=== PATIENT | male | born 1955 | race Caucasian/White ===

== ENCOUNTER 2019-03-28 00:26 | Inpatient (IN) | payer OTHER ==
[2019-03-28 01:00] LABS: Basophils % (A) 1 %; Eosinophils # (A) 0.1 k/uL (0-0.7); Eosinophils % (A) 2 %; HCT 27.4 % (39.0-53.0); Lymphocytes # (A) 0.9 k/uL (1.0-4.8); Lymphocytes % (A) 24 %; MCH 36.3 pg (25.0-35.0); MCHC 36.6 g/dL (31.0-37.0); MCV 99.2 fL (80.0-100.0); Mean Platelet Volume 7.1; Monocytes # (A) 0.3 k/uL (0-1.0); Monocytes % (A) 7 %; Neutrophils # (A) 2.6 k/uL (1.3-7.7); Neutrophils % (A) 65 %; Platelet Count 130 k/uL (150-450); RBC 2.77 m/uL (4.30-5.90); RDW 13.6 % (11.5-15.5)
[2019-03-28 01:03] LABS: ALT 42 U/L (21-72); AST 89 U/L (17-59); African American GFR (CKD) >90 (>60 ml/min/1.73 sqM); Albumin 3.5 g/dL (3.5-5.0); Alcohol <10 mg/dL; Alkaline Phosphatase 123 U/L (38-126); Anion Gap 14 mmol/L; Blood Urea Nitrogen 19 mg/dL (9-20); Calcium 8.3 mg/dL (8.4-10.2); Carbon Dioxide 22 mmol/L (22-30); Chloride 104 mmol/L (98-107); Glucose 101 mg/dL (74-99); Potassium 3.7 mmol/L (3.5-5.1); Sodium 140 mmol/L (137-145); Total Bilirubin 1.8 mg/dL (0.2-1.3); Total Protein 6.4 g/dL (6.3-8.2)
[2019-03-28 01:07] LABS: INR 1.2 (<1.2); Partial Thromboplastin Time 24.7 sec (22.0-30.0); Prothrombin Time 12.3 sec (9.0-12.0)
--- NOTE | 2019-03-28 01:17 | ED ---
GI Bleed HPI - General Chief complaint: GI Bleed Stated complaint: GI Bleed Time Seen by Provider: 03/28/19 00:34 Source: patient, EMS Mode of arrival: wheelchair - History of Present Illness Initial comments: This patient is 63-year-old man transferred here from [facility], where he had gone to be seen about GI bleeding. The patient had been having some dark stools between 1 and 2 weeks now. He also had been having some intermittent vomiting with coffee-ground emesis. Patient does admit to drinking alcohol pretty much daily, usually about a pint of alcohol. Patient has also been having some diffuse abdominal discomfort. The patient's workup at the other hospital included CT of the chest abdomen pelvis, which did show some possible mild colitis. The patient was found to have lactic acidosis at 4.7. Initial hemoglobin 11.7. MD complaint: coffee ground emesis, melena -: days(s) Quality: cramping Consistency: intermittent Improves with: none Worsens with: none Context: alcohol abuse Associated Symptoms: malaise - Related Data Home Medications Medication Instructions Recorded Confirmed No Known Home Medications 03/28/19 03/28/19 Allergies Allergy/AdvReac Type Severity Reaction Status Date / Time No Known Allergies Allergy Verified 03/28/19 07:54 Review of Systems ROS Statement: Those systems with pertinent positive or pertinent negative responses have been documented in the HPI. ROS Other: All systems not noted in ROS Statement are negative. Constitutional: Denies: fever, chills, weakness Respiratory: Denies: cough, dyspnea Cardiovascular: Denies: chest pain, palpitations, edema, syncope Gastrointestinal: Reports: abdominal pain, nausea, vomiting, hematemesis, melena Genitourinary: Denies: dysuria, hematuria Musculoskeletal: Denies: back pain Skin: Denies: rash Neurological: Denies: headache, weakness, numbness Past Medical History Past Medical History: COPD History of Any Multi-Drug Resistant Organisms: None Reported Past Surgical History: No Surgical Hx Reported Past Psychological History: No Psychological Hx Reported Smoking Status: Current every day smoker Past Alcohol Use History: Heavy Past Drug Use History: Marijuana General Exam General appearance: alert, in no apparent distress Head exam: Present: atraumatic, normocephalic Eye exam: Present: normal appearance. Absent: scleral icterus, conjunctival injection Neck exam: Present: normal inspection Respiratory exam: Present: normal lung sounds bilaterally. Absent: respiratory distress, wheezes, rales, rhonchi, stridor Cardiovascular Exam: Present: regular rate, normal rhythm, normal heart sounds GI/Abdominal exam: Present: soft, tenderness, hernia. Absent: distended, guarding, rebound, rigid, mass Extremities exam: Present: normal inspection, normal capillary refill. Absent: pedal edema, calf tenderness Back exam: Present: normal inspection. Absent: CVA tenderness (R), CVA tenderness (L) Neurological exam: Present: alert Skin exam: Present: warm, dry, intact, normal color. Absent: rash Course Vital Signs 03/28/19 03/28/19 00:31 02:53 Temperature 99 F 98.8 F Pulse Rate 93 100 Respiratory 18 18 Rate Blood Pressure 142/80 146/66 O2 Sat by Pulse 97 98 Oximetry Medical Decision Making - Lab Data Result diagrams: 03/29/19 05:37 03/29/19 05:37 Lab Results 03/28/19 03/28/19 03/28/19 Range/Units 00:34 00:39 00:39 WBC 4.0 (3.8-10.6) k/uL RBC 2.77 L (4.30-5.90) m/uL Hgb 10.0 L (13.0-17.5) gm/dL Hct 27.4 L (39.0-53.0) % MCV 99.2 (80.0-100.0) fL MCH 36.3 H (25.0-35.0) pg MCHC 36.6 (31.0-37.0) g/dL RDW 13.6 (11.5-15.5) % Plt Count 130 L (150-450) k/uL Neutrophils % 65 % Lymphocytes % 24 % Monocytes % 7 % Eosinophils % 2 % Basophils % 1 % Neutrophils # 2.6 (1.3-7.7) k/uL Lymphocytes # 0.9 L (1.0-4.8) k/uL Monocytes # 0.3 (0-1.0) k/uL Eosinophils # 0.1 (0-0.7) k/uL Basophils # 0.0 (0-0.2) k/uL PT (9.0-12.0) sec INR (<1.2) APTT (22.0-30.0) sec Sodium (137-145) mmol/L Potassium (3.5-5.1) mmol/L Chloride (98-107) mmol/L Carbon Dioxide (22-30) mmol/L Anion Gap mmol/L BUN (9-20) mg/dL Creatinine (0.66-1.25) mg/dL Est GFR (CKD-EPI)AfAm (>60 ml/min/1.73 sqM) Est GFR (CKD-EPI)NonAf (>60 ml/min/1.73 sqM) Glucose (74-99) mg/dL Plasma Lactic Acid Adriel (0.7-2.0) mmol/L Calcium (8.4-10.2) mg/dL Total Bilirubin (0.2-1.3) mg/dL AST (17-59) U/L ALT (21-72) U/L Alkaline Phosphatase (38-126) U/L Total Protein (6.3-8.2) g/dL Albumin (3.5-5.0) g/dL Serum Alcohol mg/dL Blood Type A Positive Blood Type Confirm A Positive Blood Type Recheck No Previous Record Bld Type Recheck Status CABO Indicated Antibody Screen NEGATIVE Spec Expiration Date 03/31/2019 - 233803/28/19 03/28/19 03/28/19 Range/Units 00:39 00:39 00:39 WBC (3.8-10.6) k/uL RBC (4.30-5.90) m/uL Hgb (13.0-17.5) gm/dL Hct (39.0-53.0) % MCV (80.0-100.0) fL MCH (25.0-35.0) pg MCHC (31.0-37.0) g/dL RDW (11.5-15.5) % Plt Count (150-450) k/uL Neutrophils % % Lymphocytes % % Monocytes % % Eosinophils % % Basophils % % Neutrophils # (1.3-7.7) k/uL Lymphocytes # (1.0-4.8) k/uL Monocytes # (0-1.0) k/uL Eosinophils # (0-0.7) k/uL Basophils # (0-0.2) k/uL PT 12.3 H (9.0-12.0) sec INR 1.2 H (<1.2) APTT 24.7 (22.0-30.0) sec Sodium 140 (137-145) mmol/L Potassium 3.7 (3.5-5.1) mmol/L Chloride 104 (98-107) mmol/L Carbon Dioxide 22 (22-30) mmol/L Anion Gap 14 mmol/L BUN 19 (9-20) mg/dL Creatinine 0.60 L (0.66-1.25) mg/dL Est GFR (CKD-EPI)AfAm >90 (>60 ml/min/1.73 sqM) Est GFR (CKD-EPI)NonAf >90 (>60 ml/min/1.73 sqM) Glucose 101 H (74-99) mg/dL Plasma Lactic Acid Adriel 2.3 H* (0.7-2.0) mmol/L Calcium 8.3 L (8.4-10.2) mg/dL Total Bilirubin 1.8 H (0.2-1.3) mg/dL AST 89 H (17-59) U/L ALT 42 (21-72) U/L Alkaline Phosphatase 123 (38-126) U/L Total Protein 6.4 (6.3-8.2) g/dL Albumin 3.5 (3.5-5.0) g/dL Serum Alcohol <10 mg/dL Blood Type Blood Type Confirm Blood Type Recheck Bld Type Recheck Status Antibody Screen Spec Expiration Date Disposition Clinical Impression: GI bleeding Disposition: ADMITTED IP TO THIS HOSP Condition: Fair Is patient prescribed a controlled substance at d/c from ED?: No
[2019-03-28] MEDS ORDERED: ONDANSETRON 4 MG/2 ML VIAL IVP PRN (01:25)
[2019-03-28] MEDS ORDERED: NALOXONE 0.4 MG/ML 1 ML VIAL IV PRN (01:25)
[2019-03-28] MEDS ORDERED: THIAMINE 100 MG/ML 2 ML VIAL IM STA (01:32)
[2019-03-28] MEDS ORDERED: LORazepam 2 MG/ML INJ IV PRN ×3 (01:32)
[2019-03-28] MEDS: SODIUM CHLORIDE 0.9% 1,000 ML IV SCH ×3 (02:03→19:54)
[2019-03-28] MEDS ORDERED: IPRATROPIUM-ALBUTEROL 3 ML NEB INHALATION PRN (10:38)
--- NOTE | 2019-03-28 10:43 | P.HPIM ---
History of Present Illness Patient's 63-year-old gentleman I am visiting family here from [place] came and because of her multiple episodes of hematemesis and dark stools patient has the symptoms as going on for quite some time patient was comparing of severe epigastric abdominal burning sensation and pain. Patient has alcoholic gastritis does drink 1 pint of alcohol every single day. Patient states he started having withdrawals his last alcohol drink was yesterday morning. Patient denied any fever chills nausea vomiting patient is complaining of sinus symptoms including sinus congestion patient is found to have elevated liver enzymes patient is wheezing on exam does smoke 10 cigarettes per day used to smoke very more than that in the past. Patient does have history of COPD doesn't use any medications at home. Review of Systems REVIEW OF SYSTEMS: CONSTITUTIONAL: No fever, no malaise, no fatigue. HEENT: No recent visual problems or hearing problems. Denied any sore throat. CARDIOVASCULAR: No chest pain, orthopnea, PND, no palpitations, no syncope. PULMONARY: No shortness of breath, no cough, no hemoptysis. GASTROINTESTINAL: As mentioned in the HPI NEUROLOGICAL: No headaches, no weakness, no numbness. HEMATOLOGICAL: Denies any bleeding or petechiae. GENITOURINARY: Denies any burning micturition, frequency, or urgency. MUSCULOSKELETAL/RHEUMATOLOGICAL: Denies any joint pain, swelling, or any muscle pain. ENDOCRINE: Denies any polyuria or polydipsia. The rest of the 14-point review of systems is negative. Past Medical History Past Medical History: COPD History of Any Multi-Drug Resistant Organisms: None Reported Past Surgical History: No Surgical Hx Reported Past Psychological History: No Psychological Hx Reported Smoking Status: Current every day smoker Past Alcohol Use History: Heavy Past Drug Use History: Marijuana Medications and Allergies Home Medications Medication Instructions Recorded Confirmed Type No Known Home Medications 03/28/19 03/28/19 History Allergies Allergy/AdvReac Type Severity Reaction Status Date / Time No Known Allergies Allergy Verified 03/28/19 07:54 Physical Exam Vitals: Vital Signs Temp Pulse Pulse Resp BP BP Pulse Ox 03/28/19 08:00 92 18 121/56 95 03/28/19 03:51 98.3 F 86 20 124/65 98 03/28/19 03:26 98.3 F 86 20 124/65 98 03/28/19 02:53 98.8 F 100 18 146/66 98 03/28/19 00:31 99 F 93 18 142/80 97 Intake and Output 03/27/19 03/28/19 03/28/19 22:59 06:59 14:59 Intake Total 0 Output Total 625 Balance -625 Intake: Oral 0 Output: Urine 625 Other: Voiding Method Urinal # Voids 1 Weight 89.6 kg PHYSICAL EXAMINATION: GENERAL: The patient is alert and oriented x3, not in any acute distress. Well developed, well nourished. HEENT: Pupils are round and equally reacting to light. EOMI. No scleral icterus. No conjunctival pallor. Normocephalic, atraumatic. No pharyngeal erythema. No thyromegaly. CARDIOVASCULAR: S1 and S2 present. No murmurs, rubs, or gallops. PULMONARY: Good air entry into bilateral lung bonds with the expiratory wheezing on exam ABDOMEN: Soft, nontender, nondistended, normoactive bowel sounds. No palpable organomegaly. MUSCULOSKELETAL: No joint swelling or deformity. EXTREMITIES: No cyanosis, clubbing, or pedal edema. NEUROLOGICAL: Gross neurological examination did not reveal any focal deficits. SKIN: No rashes. Results CBC & Chem 7: 03/28/19 00:39 03/28/19 00:39 Labs: Abnormal Lab Results - Last 24 Hours (Table) 03/28/19 03/28/19 03/28/19 Range/Units 00:39 00:39 00:39 RBC 2.77 L (4.30-5.90) m/uL Hgb 10.0 L (13.0-17.5) gm/dL Hct 27.4 L (39.0-53.0) % MCH 36.3 H (25.0-35.0) pg Plt Count 130 L (150-450) k/uL Lymphocytes # 0.9 L (1.0-4.8) k/uL PT 12.3 H (9.0-12.0) sec INR 1.2 H (<1.2) Creatinine 0.60 L (0.66-1.25) mg/dL Glucose 101 H (74-99) mg/dL Plasma Lactic Acid Adriel (0.7-2.0) mmol/L Calcium 8.3 L (8.4-10.2) mg/dL Total Bilirubin 1.8 H (0.2-1.3) mg/dL AST 89 H (17-59) U/L 03/28/19 Range/Units 00:39 RBC (4.30-5.90) m/uL Hgb (13.0-17.5) gm/dL Hct (39.0-53.0) % MCH (25.0-35.0) pg Plt Count (150-450) k/uL Lymphocytes # (1.0-4.8) k/uL PT (9.0-12.0) sec INR (<1.2) Creatinine (0.66-1.25) mg/dL Glucose (74-99) mg/dL Plasma Lactic Acid Adriel 2.3 H* (0.7-2.0) mmol/L Calcium (8.4-10.2) mg/dL Total Bilirubin (0.2-1.3) mg/dL AST (17-59) U/L Thrombosis Risk Factor Assmnt - Choose All That Apply Any of the Below Risk Factors Present?: Yes Each Factor Represents 1 point: Obesity (BMI >25) Other Risk Factors: Yes Each Risk Factor Represents 2 Points: Age 61-74 years Other congenital or acquired thrombophilia - If yes, enter type in comment: No Thrombosis Risk Factor Assessment Total Risk Factor Score: 3 Thrombosis Risk Factor Assessment Level: Moderate Risk Assessment and Plan Plan: -Acute upper GI bleed: Patient was started on Protonix 70 with IV fluids and pain management with morphine. Patient was excessive counseling regarding alcohol abuse -Acute alcoholic hepatitis continue with present IV fluids and conservative management -Alcohol withdrawal patient will be on Ativan CIWA protocol with thiamine and minimally vitamin supplementation -Alcoholic gastritis: Protonix as mentioned above -Acute blood loss anemia from GI bleed -COPD with minimal exacerbation patient was started in his steroids inhalational treatments counseling regarding nicotine cessation was Provided -Sinusitis ALLERGIC.
[2019-03-28] MEDS: PANTOPRAZOLE 40 MG/10 ML VIAL IVP SCH ×2 (11:19→19:46)
[2019-03-28] MEDS: MORPHINE SULFATE 4 MG/ML SYRINGE IV PRN ×3 (11:20→19:51)
[2019-03-28] MEDS ORDERED: LIDOCAINE 1% INJ 10MG/ML (20 ML MDV) ONE (14:48)
[2019-03-28] MEDS ORDERED: PROPOFOL 10 MG/ML 20 ML VIAL IV ONE (14:48)
[2019-03-28] MEDS ORDERED: IV FLUID CONTINUATION 1,000 ML IV ONE (15:04)
--- NOTE | 2019-03-28 15:04 | P.PCN ---
Date of Procedure: 03/28/19 Procedure(s) Performed: BRIEF HISTORY: Patient is a 63-year-old, pleasant, white male, admitted to this hospital with episodes of coffee-ground emesis and black tarry stools for the last 1 week duration. His initial hemoglobin was 10.1 g/dL. He has history of heavy alcohol use for many years.. No prior history of upper GI bleed. PROCEDURE PERFORMED: Esophagogastroduodenoscopy with biopsy and Endo clip placement. PREOPERATIVE DIAGNOSIS: Acute upper GI bleed. IV sedation per anesthesia. PROCEDURE: After informed consent was obtained, the patient was brought into the endoscopy unit. IV sedation was administered by Anesthesia under continuous monitoring. Initially the Olympus GIF-140 video endoscope was inserted into the mouth. Esophagus intubated without any difficulty. It was gradually advanced into the stomach and duodenum and carefully examined. The bulb and the second part of the duodenum appeared normal. The scope at this time was withdrawn to the stomach, adequately insufflated with air, and upon careful examination, mucosa of the antrum, had scattered erosions. There was a 1 cm gastric antral ulcer noted in the prepyloric area with a visible vessel but no active bleeding. 2 endoclips were placed on the visible vessel with good hemostasis. Biopsies were done from the antrum. body, cardia and the fundus appeared normal. The scope was then withdrawn into the esophagus. The GE junction was located at 39 cm from the incisors. The esophagus appeared normal. There were no evidence of gastric or esophageal varices. There were no erosions or ulcerations seen and the patient tolerated the procedure well. IMPRESSION: 1. 1 cm gastric antral ulcer with a visible vessel status post Endo Clip placement as described. 2. Antral erosive gastritis 3. No evidence of gastric or esophageal varices. RECOMMENDATIONS: The findings of this examination were discussed with the patient. We will follow with the biopsy results. Continue with Protonix 40 mg twice daily. Repeat CBC in the morning. Avoid NSAIDs.
--- NOTE | 2019-03-28 15:37 | CONS ---
CONSULTATION DATE OF SERVICE: 03/28/2019. REASON FOR CONSULTATION: Upper gastrointestinal bleed. HISTORY OF PRESENT ILLNESS: The patient is a 63-year-old white male with history of heavy alcohol abuse for almost 30 years duration, was admitted to the hospital because of acute upper GI bleed. He has been having multiple episodes of cough, coffee-ground emesis and dark-colored stools for the last 1 week duration. He is complaining of severe epigastric burning pain for the same duration. He never had any GI bleed in the past. At the time of duration in the hospital he was noted to have a hemoglobin of 10.5 g/dL. He denies any NSAID use. He reports no prior history of peptic ulcer disease. PAST MEDICAL HISTORY: Significant for heavy alcohol abuse and COPD. PAST SURGICAL HISTORY: Unremarkable. MEDICATIONS AT HOME: None. SOCIAL HISTORY: Chronic smoker, heavy alcohol abuse and drinks about 20-25 shots every day. REVIEW OF SYSTEMS: CARDIOPULMONARY: No chest pain. LUNGS: No shortness of breath. GENITOURINARY: No dysuria or hematuria. MUSCULOSKELETAL: Unremarkable. SKIN: Unremarkable. ENDOCRINE: Unremarkable. PSYCHIATRY: Unremarkable. NEUROLOGY: Unremarkable. ENT/VISION: Unremarkable. CONSTITUTIONAL: No recent weight loss. No fever, chills, night sweats. HEMATOLOGY: Anemia. PHYSICAL EXAMINATION: He appears comfortable, in no apparent distress. Vital signs are stable. Blood pressure is 132/82, pulse 92, temperature 98. HEENT: Examination unremarkable, conjunctivae are pink, sclerae nonicteric, oral cavity no lesions. NECK: No JVD or lymph node enlargement. CHEST: Clear to auscultation. HEART: Regular rate and rhythm. ABDOMEN: Soft. Bowel sounds are positive. There was tenderness in the epigastric area. EXTREMITIES: No pedal edema. SKIN: No rashes. NEUROLOGIC: Alert and oriented x3. No focal deficits. LABS: WBC 4, hemoglobin 10, platelets 130. INR is 1.2, T-Bili is 1.8. AST 89, ALT 42, alk phos is 143. Serum alcohol level less than 10. IMPRESSION: 1. Acute upper gastrointestinal bleed in this patient with history of heavy alcohol abuse and possible underlying cirrhosis of the liver. Rule out peptic ulcer disease versus esophageal variceal bleeding. Patient currently hemodynamically stable and no active bleeding since being in the hospital. 2. Elevated LFTs and mild jaundice. All related to chronic alcoholic liver disease. 3. Thrombocytopenia, most likely related to underlying chronic liver disease and cirrhosis of the liver. RECOMMENDATION: 1. Continue with IV Protonix. 2. Keep him n.p.o. 3. Will proceed with an EGD today. 4. Abstinence from alcohol. 5. Discussed with the patient risks, benefits and complications of the procedure and he is agreeable to it. Thank you for this consultation. MMODL / IJN: [id number] /
[2019-03-28] MEDS: NICOTINE 21MG/24HR PATCH TRANSDERM SCH (16:10)
[2019-03-28] MEDS: THIAMINE 100 MG TAB PO SCH (18:45)
[2019-03-28] MEDS: SYMBICORT 160-4.5 MCG INHALER INHALATION SCH (21:15)
[2019-03-29] MEDS: MORPHINE SULFATE 4 MG/ML SYRINGE IV PRN ×5 (01:21→21:09)
[2019-03-29] MEDS: SODIUM CHLORIDE 0.9% 1,000 ML IV SCH ×2 (01:23→12:30)
[2019-03-29 05:52] LABS: HCT 23.7 % (39.0-53.0); MCH 35.1 pg (25.0-35.0); MCHC 34.9 g/dL (31.0-37.0); MCV 100.5 fL (80.0-100.0); Mean Platelet Volume 7.5; Platelet Count 110 k/uL (150-450); RBC 2.36 m/uL (4.30-5.90); RDW 13.6 % (11.5-15.5); WBC 3.1 k/uL (3.8-10.6)
[2019-03-29 06:05] LABS: ALT 40 U/L (21-72); AST 56 U/L (17-59); African American GFR (CKD) >90 (>60 ml/min/1.73 sqM); Albumin 3.1 g/dL (3.5-5.0); Alkaline Phosphatase 107 U/L (38-126); Anion Gap 8 mmol/L; Blood Urea Nitrogen 18 mg/dL (9-20); Calcium 8.5 mg/dL (8.4-10.2); Carbon Dioxide 26 mmol/L (22-30); Chloride 106 mmol/L (98-107); Glucose 106 mg/dL (74-99); HGB 8.3 gm/dL (13.0-17.5); Potassium 3.2 mmol/L (3.5-5.1); Sodium 140 mmol/L (137-145); Total Bilirubin 1.5 mg/dL (0.2-1.3); Total Protein 5.8 g/dL (6.3-8.2)
[2019-03-29] MEDS: THIAMINE 100 MG TAB PO SCH ×2 (06:11→17:35)
[2019-03-29] MEDS: SYMBICORT 160-4.5 MCG INHALER INHALATION SCH ×2 (07:43→19:47)
[2019-03-29] MEDS ORDERED: Potassium Replacement Protocol 1 EACH MISC MISCELLANE PRN ×2 (07:55→18:11)
[2019-03-29] MEDS: PANTOPRAZOLE 40 MG/10 ML VIAL IVP SCH ×2 (08:49→19:47)
[2019-03-29] MEDS: NICOTINE 21MG/24HR PATCH TRANSDERM SCH (08:50)
[2019-03-29] MEDS: POTASSIUM CHLORIDE ER 20 MEQ TAB.ER PO SCH ×4 (08:50→21:09)
--- NOTE | 2019-03-29 18:20 | PN ---
PROGRESS NOTE DATE OF DICTATION: 03/29/2019 The patient is a 63-year-old white male with history of heavy alcoholism admitted to the hospital with acute upper GI bleed. He underwent an upper endoscopy done by me yesterday that showed antral erosive gastritis and an antral ulcer with a visible vessel, and Endoclip was placed. The patient is doing well. He had 2 episodes of black tarry stools this morning. He still continues to complain of epigastric pain. No nausea or vomiting. PHYSICAL EXAMINATION: He appears comfortable. No apparent distress. VITAL SIGNS: Stable. Blood pressure is 127/73, pulse rate 70, temperature 97.5. HEENT examination unremarkable. Conjunctivae pink. Sclerae anicteric. Oral cavity no lesions. NECK: No JVD or lymph node enlargement. CHEST: Clear to auscultation. HEART: Regular rate and rhythm. ABDOMEN: Soft. Bowel sounds are positive. Mild tenderness in the epigastric area. EXTREMITIES: No pedal edema. SKIN: No rashes. NEUROLOGIC: Alert and oriented x3. No focal deficits. LABS FROM TODAY: WBC 3.1, hemoglobin 8.3, platelets 110. BUN 18, creatinine 0.62. IMPRESSION: 1. Acute upper gastrointestinal bleed, status post esophagogastroduodenoscopy yesterday that showed a 1 cm antral ulcer with a visible vessel, status post Endoclip placement. Patient doing well. Hemoglobin dropped to 8.3. Had 2 back tarry stools this morning. 2. History of heavy alcohol abuse. RECOMMENDATIONS: 1. Continue with IV Protonix 40 mg twice daily. 2. Advance diet as tolerated. 3. CBC in the morning. 4. Will follow with you closely during his hospital stay. Thank you for this consultation. MMODL / IJN: [id number] /
--- NOTE | 2019-03-29 23:03 | P.PN ---
Subjective Progress Note Date: 03/29/19 Principal diagnosis: Patient's 63-year-old gentleman in visiting family here from [place] came and because of her multiple episodes of hematemesis and dark stools patient has the symptoms as going on for quite some time patient was complaining of severe epigastric abdominal burning sensation and pain. Patient has alcoholic gastritis does drink 1 pint of alcohol every single day. Patient states he started having withdrawals his last alcohol drink was yesterday morning. Patie nt denied any fever chills nausea vomiting patient is complaining of sinus symptoms including sinus congestion patient is found to have elevated liver enzymes patient is wheezing on exam does smoke 10 cigarettes per day used to smoke very more than that in the past. Patient does have history of COPD doesn't use any medications at home. 03/29/2019 Patient is lying in bed in no acute distress as he was just given some pain medication for his epigastric abdominal pain. Patient underwent an EGD with GI yesterday with biopsy and clip placement as there was a 1 cm gastric antral ulcer with a visible vessel s/p endo clip placement, antral erosive gastritis, and no evidence of gastric or esophageal varices. Patient states that his nausea is intermittent but has been able to tolerate clear liquids. Patient denies any vomiting at this time. Patient states that his bowel movements are still loose but have lessened. Patient is not actively withdrawing from alcohol at this time. Patient denies any chest pain, shortness of breath, or palpitations at this time. Patient is afebrile. Objective - Vital Signs Vital signs: Vital Signs Temp 98.2 F 03/29/19 20:00 Pulse 74 03/29/19 20:00 Resp 18 03/29/19 20:00 BP 124/64 03/29/19 20:00 Pulse Ox 97 03/29/19 20:00 Intake & Output 03/29/19 03/29/19 03/30/19 06:59 18:59 06:59 Intake Total 480 1055 Output Total 775 Balance 480 280 Weight 89.2 kg Intake: Oral 480 1055 Output: Urine 775 Other: Voiding Method Urinal Urinal Urinal # Voids 2 - Exam GENERAL: The patient is alert and oriented x3, not in any acute distress. Well developed, well nourished. Vital signs are stable. HEENT: Pupils are round and equally reacting to light. EOMI. No scleral icterus. No conjunctival pallor. Normocephalic, atraumatic. No pharyngeal erythema. No thyromegaly. CARDIOVASCULAR: S1 and S2 present. No murmurs, rubs, or gallops. PULMONARY: Good air entry into bilateral lung bonds with mild expiratory wheezing on exam ABDOMEN: Soft, obese, mild tenderness noted in the epigastric area, nondistended, normoactive bowel sounds. No palpable organomegaly. MUSCULOSKELETAL: No joint swelling or deformity. EXTREMITIES: No cyanosis, clubbing, or pedal edema. NEUROLOGICAL: Gross neurological examination did not reveal any focal deficits. SKIN: No rashes. - Labs CBC & Chem 7: 03/29/19 05:37 03/29/19 16:41 Labs: Abnormal Lab Results - Last 24 Hours (Table) 03/29/19 03/29/19 03/29/19 Range/Units 05:37 05:37 16:41 WBC 3.1 L (3.8-10.6) k/uL RBC 2.36 L (4.30-5.90) m/uL Hgb 8.3 L D (13.0-17.5) gm/dL Hct 23.7 L (39.0-53.0) % MCV 100.5 H (80.0-100.0) fL MCH 35.1 H (25.0-35.0) pg Plt Count 110 L (150-450) k/uL Potassium 3.2 L 3.4 L (3.5-5.1) mmol/L Creatinine 0.62 L (0.66-1.25) mg/dL Glucose 106 H (74-99) mg/dL Total Bilirubin 1.5 H (0.2-1.3) mg/dL Total Protein 5.8 L (6.3-8.2) g/dL Albumin 3.1 L (3.5-5.0) g/dL Assessment and Plan Assessment: -Acute upper GI bleed: Patient was started on Protonix 40 with IV fluids and pain management with morphine. Patient was excessive counseling regarding alcohol abuse -Gastric antral ulcer 1cm, antral erosive gastritis as found on EGD. Biopsy is pending. GI is following -Acute alcoholic hepatitis continue with present IV fluids and conservative management -Alcohol withdrawal patient will be on Ativan CIWA protocol with thiamine and multi vitamin supplementation -Alcoholic gastritis: Protonix as mentioned above -Acute blood loss anemia from GI bleed -COPD with minimal exacerbation patient was started in his steroids inhalational treatments counseling regarding nicotine cessation was Provided -Sinusitis ALLERGIC.
[2019-03-30] MEDS: MORPHINE SULFATE 4 MG/ML SYRINGE IV PRN ×3 (03:23→20:48)
[2019-03-30] MEDS: SODIUM CHLORIDE 0.9% 1,000 ML IV SCH ×2 (03:26→08:23)
[2019-03-30] MEDS: THIAMINE 100 MG TAB PO SCH ×2 (06:10→20:48)
[2019-03-30 06:58] LABS: Basophils % (A) 0 %; Eosinophils # (A) 0.1 k/uL (0-0.7); Eosinophils % (A) 4 %; HCT 22.4 % (39.0-53.0); HGB 7.9 gm/dL (13.0-17.5); Lymphocytes # (A) 0.7 k/uL (1.0-4.8); Lymphocytes % (A) 24 %; MCH 36.2 pg (25.0-35.0); MCHC 35.4 g/dL (31.0-37.0); MCV 102.3 fL (80.0-100.0); Macrocytosis Slight; Mean Platelet Volume 7.4; Monocytes # (A) 0.2 k/uL (0-1.0); Monocytes % (A) 7 %; Neutrophils # (A) 1.8 k/uL (1.3-7.7); Neutrophils % (A) 62 %; Platelet Count 119 k/uL (150-450); RBC 2.19 m/uL (4.30-5.90); RDW 13.8 % (11.5-15.5); WBC 2.9 k/uL (3.8-10.6)
[2019-03-30 07:10] LABS: African American GFR (CKD) >90 (>60 ml/min/1.73 sqM); Anion Gap 7 mmol/L; Blood Urea Nitrogen 9 mg/dL (9-20); Calcium 8.2 mg/dL (8.4-10.2); Carbon Dioxide 29 mmol/L (22-30); Chloride 101 mmol/L (98-107); Glucose 100 mg/dL (74-99); Potassium 3.5 mmol/L (3.5-5.1); Sodium 137 mmol/L (137-145)
[2019-03-30] MEDS ORDERED: Potassium Replacement Protocol 1 EACH MISC MISCELLANE PRN (07:26)
[2019-03-30] MEDS: SYMBICORT 160-4.5 MCG INHALER INHALATION SCH ×2 (07:31→20:54)
[2019-03-30] MEDS: PANTOPRAZOLE 40 MG/10 ML VIAL IVP SCH ×2 (08:24→20:47)
[2019-03-30] MEDS: NICOTINE 21MG/24HR PATCH TRANSDERM SCH (08:24)
[2019-03-30] MEDS: POTASSIUM CHLORIDE ER 20 MEQ TAB.ER PO SCH ×2 (08:24→12:20)
--- NOTE | 2019-03-30 15:01 | P.PN ---
Subjective Progress Note Date: 03/30/19 Principal diagnosis: Patient's 63-year-old gentleman in visiting family here from [place] came and because of her multiple episodes of hematemesis and dark stools patient has the symptoms as going on for quite some time patient was complaining of severe epigastric abdominal burning sensation and pain. Patient has alcoholic gastritis does drink 1 pint of alcohol every single day. Patient states he started having withdrawals his last alcohol drink was yesterday morning. Patie nt denied any fever chills nausea vomiting patient is complaining of sinus symptoms including sinus congestion patient is found to have elevated liver enzymes patient is wheezing on exam does smoke 10 cigarettes per day used to smoke very more than that in the past. Patient does have history of COPD doesn't use any medications at home. 03/29/2019 Patient is lying in bed in no acute distress as he was just given some pain medication for his epigastric abdominal pain. Patient underwent an EGD with GI yesterday with biopsy and clip placement as there was a 1 cm gastric antral ulcer with a visible vessel s/p endo clip placement, antral erosive gastritis, and no evidence of gastric or esophageal varices. Patient states that his nausea is intermittent but has been able to tolerate clear liquids. Patient denies any vomiting at this time. Patient states that his bowel movements are still loose but have lessened. Patient is not actively withdrawing from alcohol at this time. Patient denies any chest pain, shortness of breath, or palpitations at this time. Patient is afebrile. 03/30/2019 Patient is lying in bed in mild acute distress having some nausea after eating breakfast. Patient states that yesterday he had 2 dark stools and has not had any bowel movements yet this morning. Patient states he has mid epigastric pain. Patient denies any chest pain, shortness of breath, or palpitations at this time. Patient is afebrile. Patient denies any withdrawals from alcohol at this time. Discussed with the patient at length today about refraining from any alcohol intake upon discharge. Patient is agreeable. GI is following closely. Hemoglobin today is 7.9 down from 8.3 yesterday. Patient denies any emesis at this time. Patient recently advance his diet today and is tolerating slightly with some nausea noted. Will continue to monitor. Discussed with the patient if there is no active bleeding with emesis or bowel movements that we will likely discharge the patient tomorrow. Patient is agreeable to this. Will repeat a.m. labs. No acute overnight events. Guarded prognosis prognosis. Objective - Vital Signs Vital signs: Vital Signs Temp 97.8 F 03/30/19 08:00 Pulse 90 03/30/19 08:00 Resp 18 03/30/19 08:00 BP 126/82 03/30/19 08:00 Pulse Ox 99 03/30/19 08:00 Intake & Output 03/29/19 03/30/19 03/30/19 18:59 06:59 18:59 Intake Total 1055 476 Output Total 775 1000 Balance 280 -524 Weight 89.8 kg Intake: Oral 1055 476 Output: Urine 775 1000 Other: Voiding Method Urinal Urinal Urinal # Voids 650 - Exam GENERAL: The patient is alert and oriented x3, not in any acute distress. Well developed, well nourished. Vital signs are stable. HEENT: Pupils are round and equally reacting to light. EOMI. No scleral icterus. No conjunctival pallor. Normocephalic, atraumatic. No pharyngeal erythema. No thyromegaly. CARDIOVASCULAR: S1 and S2 present. No murmurs, rubs, or gallops. PULMONARY: Good air entry into bilateral lung bonds with mild expiratory wheezing on exam. Dry hacking cough noted on exam ABDOMEN: Soft, obese, mild tenderness noted in the mid epigastric area, non distended, normoactive bowel sounds. No palpable organomegaly. MUSCULOSKELETAL: No joint swelling or deformity. EXTREMITIES: No cyanosis, clubbing, or pedal edema. NEUROLOGICAL: Gross neurological examination did not reveal any focal deficits. SKIN: No rashes. - Labs CBC & Chem 7: 03/30/19 06:27 03/30/19 06:27 Labs: Abnormal Lab Results - Last 24 Hours (Table) 03/29/19 03/30/19 03/30/19 Range/Units 16:41 06:27 06:27 WBC 2.9 L (3.8-10.6) k/uL RBC 2.19 L (4.30-5.90) m/uL Hgb 7.9 L (13.0-17.5) gm/dL Hct 22.4 L (39.0-53.0) % MCV 102.3 H (80.0-100.0) fL MCH 36.2 H (25.0-35.0) pg Plt Count 119 L (150-450) k/uL Lymphocytes # 0.7 L (1.0-4.8) k/uL Potassium 3.4 L (3.5-5.1) mmol/L Creatinine 0.62 L (0.66-1.25) mg/dL Glucose 100 H (74-99) mg/dL Calcium 8.2 L (8.4-10.2) mg/dL Assessment and Plan Assessment: -Acute upper GI bleed: Patient was started on Protonix 40 with IV fluids and pain management with morphine. Patient was excessive counseling regarding alcohol abuse -Gastric antral ulcer 1cm, antral erosive gastritis as found on EGD. Biopsy is pending. GI is following -Acute alcoholic hepatitis continue with present IV fluids and conservative management -Alcohol withdrawal patient will be on Ativan CIWA protocol with thiamine and multi vitamin supplementation -Alcoholic gastritis: Protonix as mentioned above -Acute blood loss anemia from GI bleed. Hemoglobin is 7.9 today. Will check CBC in the morning. -COPD with minimal exacerbation patient was started in his steroids inhalational treatments counseling regarding nicotine cessation was Provided -Sinusitis ALLERGIC. Recommendations and discussion: Recommend continue current medications, management, and symptomatic treatment. GI is following. Will monitor for any active bleeding and will repeat CBC in the morning to monitor hemoglobin. Guarded prognosis. Further recommendations to follow. If no active bleeding is noted and hemoglobin is stable will discharge in the morning. Discussed this at length with the patient and patient is agreeable.
--- NOTE | 2019-03-30 21:11 | PN ---
PROGRESS NOTE DATE OF SERVICE: March 30, 2019 Patient is a 63-year-old white male admitted to hospital with acute upper GI bleed. He had an upper endoscopy done 3 days ago, which showed an antral ulcer and Endoclips were placed. The patient since then has been doing well. No further episodes of bleeding. He still has some epigastric pain, but overall improving. No further episodes of nausea and vomiting. PHYSICAL EXAMINATION: Appears comfortable. In no apparent distress. Vital signs stable. Blood pressure 129/75, pulse is 76, temperature 97.9. HEENT examination unremarkable. Conjunctivae pink. Sclerae anicteric. Oral cavity no lesions. NECK: No JVD or lymph node enlargement. CHEST: Clear to auscultation. HEART: Regular rate and rhythm. ABDOMEN: Soft. Bowel sounds are positive. No organomegaly. EXTREMITIES: No pedal edema. SKIN no rashes. NEUROLOGIC: Alert and oriented x3. No focal deficits. LABS: From today hemoglobin 7.6, WBC 2.9, platelets 119. IMPRESSION: 1. Acute upper gastrointestinal bleed, status post EGD 2 days ago that showed an antral ulcer status post endoclip placement. The patient on Protonix 40 mg twice daily and symptoms are gradually improving. 2. Mild elevation of serum transaminases and pancytopenia, most likely related to underlying chronic liver disease, possible cirrhosis of the liver. 3. Heavy alcohol abuse. RECOMMENDATION: 1. Advance diet as tolerated. 2. Repeat CBC in the morning. 3. Continue Protonix 40 mg twice daily. 4. The patient can be discharged home if she is stable tomorrow with outpatient followup in 2 weeks. MMODL / IJN: [id number] /
[2019-03-31 01:03] VITALS: RESP 16
[2019-03-31] MEDS: SODIUM CHLORIDE 0.9% 1,000 ML IV SCH (03:34)
[2019-03-31] MEDS: THIAMINE 100 MG TAB PO SCH (06:31)
[2019-03-31 07:23] LABS: African American GFR (CKD) >90 (>60 ml/min/1.73 sqM); Anion Gap 9 mmol/L; Blood Urea Nitrogen 9 mg/dL (9-20); Calcium 8.6 mg/dL (8.4-10.2); Carbon Dioxide 29 mmol/L (22-30); Chloride 100 mmol/L (98-107); Glucose 105 mg/dL (74-99); Potassium 3.4 mmol/L (3.5-5.1); Sodium 138 mmol/L (137-145)
[2019-03-31 07:36] LABS: HGB 8.5 gm/dL (13.0-17.5); MCH 36.2 pg (25.0-35.0); MCHC 35.4 g/dL (31.0-37.0); MCV 102.3 fL (80.0-100.0); Macrocytosis Slight; Mean Platelet Volume 7.5; Platelet Count 130 k/uL (150-450); RBC 2.35 m/uL (4.30-5.90); RDW 14.5 % (11.5-15.5)
[2019-03-31] MEDS: SYMBICORT 160-4.5 MCG INHALER INHALATION SCH (08:31)
[2019-03-31 08:34] VITALS: BP 109/63; PULSE 88; TEMP 98
--- NOTE | 2019-03-31 10:21 | P.DS ---
Providers Date of admission: 03/30/19 09:56 Expected date of discharge: 03/31/19 Attending physician: Magali Seymour Consults: 03/28/19 01:30 Consult Physician Routine Consulting Provider: Irene Lomeli Consult Reason/Comments: GI Bleeding Do you want consulting provider notified?: Yes Primary care physician: Stated None Hospital Course: Final diagnosis Acute upper GI bleed Gastric antral ulcer 1 cm, antral erosive gastritis Acute alcoholic hepatitis alcohol withdrawal Alcoholic gastritis Acute blood loss anemia COPD with minimal exacerbation Tobacco abuse Sinusitis, allergic Discharge disposition Patient is being discharged in a stable condition with guarded prognosis to home and patient will follow-up with GI in 2 weeks as scheduled for biopsy results. Patient will continue on Protonix twice daily until follow-up. Total time taken is 35 minutes. History of present illness This is a 63-year-old male who was visiting from [place] and had multiple episodes of hematemesis and dark stools and was negative for GI bleed and was being closely monitored. During hospitalization patient continue to have dark black stools and severe epigastric abdominal pain. Patient was seen by gastroenterology and underwent an EEG with biopsy and had an Endo Clip placed and was found to have a 1 cm gastric antral ulcer as well as antral erosive gastritis with no evidence of gastric or esophageal varices. Patient is a chronic alcoholic and was discussed in detail about avoiding all alcohol intake. Patient verbalized understanding and agrees with this plan. Patient will fo llow-up with GI in 2 weeks for biopsy results. Patient will continue on Protonix 40 mg twice daily until follow-up. Also discussed with the patient about smoking cessation and patches were provided. Patient states he does have a history of COPD doesn't take any medications for. Patient will need to follow-up with primary care provider upon return to [place]. Currently patient is not having any nausea or vomiting and denies any dark black stools at this time. Patient denies any chest pain, shortness of breath, or palpitations at this time. Patient is afebrile. Hemoglobin today is 8.5. Currently patient's condition is stable with much improvement and will be going home today. On exam vital signs are stable. Temp is 98F, pulse is 88, respirations are 16, blood pressure is 109/63, oxygen saturation is 99% on room air. Cardio S1 and S2 are heard. Respiratory system shows diminished breath sounds at the bases with expiratory wheezing. Abdomen is soft, obese, mild tenderness on deep palpation noted to the mid epigastric area. Nervous system shows no focal deficits. Please refer to medication reconciliation sheet for a list of medications. Patient Condition at Discharge: Fair Plan - Discharge Summary New Discharge Prescriptions: New Folic Acid 1 mg PO DAILY #30 tablet Nicotine 21Mg/24Hr Patch [Habitrol] 1 patch TRANSDERM DAILY #20 patch Mag Hydrox/Al Hydrox/Simeth [Maalox] 0 ml PO DAILY PRN #120 ml PRN Reason: Indigestion Multivitamins, Thera [Multivitamin] 1 tab PO DAILY #30 tablet Pantoprazole Sodium [Protonix] 40 mg PO BID 30 Days #60 tablet. Thiamine [Vitamin B-1] 100 mg PO BID-W/MEALS 30 Days #60 tab Discharge Medication List Folic Acid 1 mg PO DAILY #30 tablet 03/31/19 [Rx] Mag Hydrox/Al Hydrox/Simeth [Maalox] 0 ml PO DAILY PRN #120 ml 03/31/19 [Rx] Multivitamins, Thera [Multivitamin] 1 tab PO DAILY #30 tablet 03/31/19 [Rx] Nicotine 21Mg/24Hr Patch [Habitrol] 1 patch TRANSDERM DAILY #20 patch 03/31/19 [Rx] Pantoprazole Sodium [Protonix] 40 mg PO BID 30 Days #60 tablet. 03/31/19 [Rx] Thiamine [Vitamin B-1] 100 mg PO BID-W/MEALS 30 Days #60 tab 03/31/19 [Rx] Follow up Appointment(s)/Referral(s): Irene Lomeli MD [STAFF PHYSICIAN] - 04/15/19 10:30 am (Thursday with Mariya VILLA) Ambulatory/Diagnostic Orders: Basic Metabolic Panel [LAB.AMB] Time Frame: 3 Days, Location: None Selected Complete Blood Count w/diff [LAB.AMB] Time Frame: 3 Days, Location: None Selected Patient Instructions/Handouts: Gastrointestinal Bleeding (DC), Abuse of Alcohol (DC), Upper Endoscopy (DC) Activity/Diet/Wound Care/Special Instructions: Activity Limited until follow-up Continue current diet and advance as tolerated AVOID ALL ALCOHOL INTAKE Avoid tobacco use Follow-up with GI in 2 weeks as scheduled Follow-up with primary care provider upon return to [place] Discharge Disposition: HOME SELF-CARE
[2019-03-31] MEDS: NICOTINE 21MG/24HR PATCH TRANSDERM SCH (10:35)
[2019-03-31] MEDS: PANTOPRAZOLE 40 MG/10 ML VIAL IVP SCH (10:35)
--- NOTE | 2019-03-31 14:43 | PN ---
PROGRESS NOTE DATE OF SERVICE: 03/31/2019 Patient is a 63-year-old pleasant white male admitted to the hospital with acute upper GI bleed. History of heavy alcohol abuse. Upper endoscopy showed an antral ulcer. He is on Protonix 40 mg twice daily, doing well. Has some epigastric discomfort. Tolerating diet. PHYSICAL EXAMINATION: Appears comfortable, in no apparent distress. VITAL SIGNS: Stable. Blood pressure 114/66, pulse rate 88, temperature 98. HEENT: Examination unremarkable, conjunctivae are pink. Sclerae nonicteric, oral cavity no lesions. NECK: No JVD or lymph node enlargement. CHEST: Clear to auscultation. HEART: Regular rate and rhythm. ABDOMEN: Soft. Bowel sounds are positive. No organomegaly. EXTREMITIES: No pedal edema. SKIN: No rashes. NEURO: Alert and oriented x3. No focal deficits. LABS: Done today, hemoglobin is 8.2 g/dL. IMPRESSION: 1. Acute upper gastrointestinal bleed secondary to gastric antral ulcer. Presently on Protonix 40 mg twice daily, doing well. 2. Heavy alcohol abuse. 3. Anemia with a stable hemoglobin for the last three days. RECOMMENDATION: 1. Continue with Protonix 40 mg daily. 2. Avoid NSAIDs. 3. Abstinence from alcohol. 4. Follow up in office in 2 weeks following discharge from the hospital. Thank you for this consultation. MMODL / IJN: [id number] /
== END 2019-03-31 13:42 | disposition home or self-care (01) | DRG 378 ==
LOC: EC 00:26 → 3SCARD 01:29 → OBSVTOIN 03-30 09:56
PROVIDERS: ADMIT Hospitalist; ATTEND Hospitalist
PROC: 0DB78ZX Excision of Stomach, Pylorus, Via Natural or Artificial Opening Endoscopic, Diagnostic (ICD-10-PCS; principal; 2019-03-28 09:50)
PROC: 0W3P8ZZ Control Bleeding in Gastrointestinal Tract, Via Natural or Artificial Opening Endoscopic (ICD-10-PCS; 2019-03-28 09:50)
DX: K25.4 Chronic or unspecified gastric ulcer with hemorrhage (principal); D61.818 Other pancytopenia; D62 Acute posthemorrhagic anemia; E87.2 Acidosis; F10.239 Alcohol dependence with withdrawal, unspecified; J44.1 Chronic obstructive pulmonary disease with (acute) exacerbation; K29.20 Alcoholic gastritis without bleeding; D69.59 Other secondary thrombocytopenia; Z71.6 Tobacco abuse counseling; F17.210 Nicotine dependence, cigarettes, uncomplicated; K70.10 Alcoholic hepatitis without ascites; K74.60 Unspecified cirrhosis of liver; J30.9 Allergic rhinitis, unspecified
CPT/HCPCS: 36415; 36430; 43239; 43255; 80048; 80053; 80320; 83605; 84132; 85025; 85027; 85610; 85730; 86850; 86900; 86901; 88305; 88342; 94640; 96372; 99285

== ENCOUNTER 2021-08-09 02:54 | Emergency (ER) | payer OTHER ==
[2021-08-09] MEDS ORDERED: MORPHINE SULFATE 4 MG/ML SYRINGE IVP STA ×2 (03:20→04:48)
--- NOTE | 2021-08-09 04:05 | XR ---
EXAMINATION TYPE: XR humerus LT DATE OF EXAM: 08/09/2021 COMPARISON: NONE HISTORY: Fall. Pain TECHNIQUE: 2 views FINDINGS: There is deformity of the left humeral neck related to impacted acute fracture. The elbow j oint appears intact. There is no dislocation. IMPRESSION: Acute impacted humeral neck fracture. There is approximate 13 mm of impaction.
--- NOTE | 2021-08-09 04:06 | XR ---
EXAMINATION TYPE: XR shoulder limited LT DATE OF EXAM: 08/09/2021 COMPARISON: NONE HISTORY: Fall. Pain TECHNIQUE: 2 views FINDINGS: There is acute impacted humeral neck fracture. There is no dislocation. The scapula is inta ct. AC joint is intact. IMPRESSION: There is 1.5 cm impacted humeral neck acute fracture.
--- NOTE | 2021-08-09 04:52 | ED ---
General Adult HPI - General Chief complaint: Extremity Injury, Upper Stated complaint: Fall, LT arm injury Time Seen by Provider: 08/09/21 02:58 Source: patient, EMS, RN notes reviewed, old records reviewed Mode of arrival: EMS Limitations: no limitations - History of Present Illness Initial comments: Patient is a 66-year-old male with past medical history remarkable for chronic liver disease secondary to alcohol abuse presents emergency Department following a fall complaining of left shoulder pain. Patient fell yesterday slipping on ice. Landed on his left elbow. Since that time he has been having bruising over his left humerus, as well as left shoulder pain. Has difficulty moving his left shoulder. Denies any weakness or numbness from the elbow to his fingertips on the left side. Has no other injuries. He thought he was okay, however the pain is getting worse which is why presented to emergency department for further evaluation. His no other acute point at this time. Did not hit his head. No LOC. - Related Data Previous Rx's Medication Instructions Recorded Folic Acid 1 mg PO DAILY #30 tablet 03/31/19 Mag Hydrox/Al Hydrox/Simeth 0 ml PO DAILY PRN #120 ml 03/31/19 [Maalox] Multivitamins, Thera [Multivitamin] 1 tab PO DAILY #30 tablet 03/31/19 Nicotine 21Mg/24Hr Patch [Habitrol] 1 patch TRANSDERM DAILY #20 patch 03/31/19 Pantoprazole Sodium [Protonix] 40 mg PO BID 30 Days #60 tablet. 03/31/19 Thiamine [Vitamin B-1] 100 mg PO BID-W/MEALS 30 Days #60 03/31/19 tab HYDROcodone/APAP 7.5-325MG [[place] 1 tab PO Q6HR PRN 5 Days #20 tab 08/09/21 7.5-325] Methocarbamol [Robaxin-750] 750 mg PO BID 7 Days #14 tablet 08/09/21 Allergies Allergy/AdvReac Type Severity Reaction Status Date / Time No Known Allergies Allergy Verified 08/09/21 03:02 Review of Systems ROS Statement: Those systems with pertinent positive or pertinent negative responses have been documented in the HPI. Review of Systems: CONST: Denies fever EYES: Denies blurry vision ENT: Denies nasal congestion C/V: Denies Chest pain RESP: Denies shortness of breath GI: Denies abdominal pain : Denies dysuria SKIN: Endorses left shoulder bruising MSK: Endorses left shoulder pain NEURO: Denies headache ROS Other: All systems not noted in ROS Statement are negative. Past Medical History Past Medical History: COPD Additional Past Medical History / Comment(s): liver failure History of Any Multi-Drug Resistant Organisms: None Reported Past Surgical History: No Surgical Hx Reported Past Psychological History: No Psychological Hx Reported Smoking Status: Current every day smoker Past Alcohol Use History: Heavy Past Drug Use History: Marijuana General Exam - General Exam Comments Initial Comments: General: Mild distress secondary to left shoulder pain. HEAD: Normal with no signs of head trauma. EYES: PERRLA, EOMI, conjunctiva normal, no discharge. Pupils are 3 mm and equal bilaterally. ENT: Hearing grossly intact, normal oropharynx. RESPIRATORY: Clear breath sounds bilaterally. No wheezes, rales, or rhonchi. C/V: Regular rate and rhythm. S1 and S2 auscultated, no edema, peripheral pulses 2+ and intact throughout. This includes 2+ radial pulses in the left upper extremity ABD: Abd is soft, nontender, nondistended EXT: Motion of the left upper extremity at the shoulder secondary to pain. No obvious deformity. No broken skin. No elbow tenderness to palpation. No hand tenderness to palpation. SKIN: Patient has purple discoloration over the proximal aspect of the left humerus which is bruising likely secondary to suspected underlying fracture. Compartments are soft. NEURO: Alert and oriented 4. No focal sensory or strength deficits. Neurovascular intact throughout the left upper extremity. Limitations: no limitations Course Vital Signs 08/09/21 08/09/21 02:56 04:04 Temperature 98.5 F Pulse Rate 96 91 Respiratory 22 20 Rate Blood Pressure 126/100 150/74 O2 Sat by Pulse 96 97 Oximetry Medical Decision Making - Medical Decision Making Based on the patient's presentation and physical exam, I'm concerned for bony traumatic injury the patient's left shoulder. We will obtain x-rays of the left arm. He will be given morphine for analgesia. IV was placed by EMS. Patient's left shoulder x-ray revealed an impacted humeral neck acute fracture. There is a 1.5 cm impacted fracture. No dislocation. On reevaluation, patient remains risks and intact. I spoke with the orthopedic physician clinical education assistant, Pratik, who recommended patient be placed in a sling as he is neurovascularly intact. He can follow up outpatient with Dr. Durbin. He'll be provided with [place] 7.5 for home as well as Robaxin. He was in agreement this plan. He'll call Dr. Durbin later this morning. Patient be placed in a sling prior to discharge. I will provide the patient with a prescription for [place] 7.5, Robaxin. I instructed the patient to follow up with their PCP in the next 3 days. I provided contact information for follow up with Dr. Durbin. I explained that the patient should return to the emergency department if they experience any worsening symptoms. Strict return precautions were discussed with the patient. The patient expressed understanding of these instructions. I answered all questions that the patient had. The patient was discharged home in fair condition with their prescriptions and follow up information. Disposition Clinical Impression: Humeral head fracture Disposition: HOME SELF-CARE Condition: Fair Instructions (If sedation given, give patient instructions): Proximal Humerus Fracture (ED) Additional Instructions: Follow-up with Dr. Durbin. Call his office later this morning. Prescriptions: HYDROcodone/APAP 7.5-325MG [[place] 7.5-325] 1 tab PO Q6HR PRN 5 Days #20 tab PRN Reason: Pain Methocarbamol [Robaxin-750] 750 mg PO BID 7 Days #14 tablet Is patient prescribed a controlled substance at d/c from ED?: Yes When asked, does pt state using other controlled substances?: No If prescribed controlled substance>3 days was MAPS reviewed?: Yes If opioid is for acute pain is fill amount 7 days or less?: Yes If Rx opioid, was Start Talking consent form obtained?: Yes Referrals: Nonstaff,Physician [Primary Care Provider] - 1-2 days John Durbin DO [Doctor of Osteopathic Medicine] - 1-2 days
[2021-08-09 06:23] VITALS: BP 149/79; PULSE 79; RESP 18; TEMP 98
[2021-08-09] MEDS ORDERED: ONDANSETRON ODT 4 MG TAB PO STA ×2 (06:54→06:56)
== END 2021-08-09 06:23 | disposition home or self-care (01) ==
LOC: EC 02:54
DX: S42.212A Unspecified displaced fracture of surgical neck of left humerus, initial encounter for closed fracture (principal); F17.200 Nicotine dependence, unspecified, uncomplicated; J44.9 Chronic obstructive pulmonary disease, unspecified; W00.0XXA Fall on same level due to ice and snow, initial encounter
CPT/HCPCS: 73020; 73060; 99284; 96374; 96376; J2270

== ENCOUNTER 2021-08-09 10:28 | Emergency (ER) | payer OTHER ==
[2021-08-09 10:40] VITALS: RESP 18
[2021-08-09] MEDS ORDERED: SODIUM CHLORIDE 0.9% 1,000 ML IV STA (12:10)
[2021-08-09] MEDS ORDERED: ONDANSETRON 4 MG/2 ML VIAL IVP STA (12:11)
--- NOTE | 2021-08-09 12:16 | ED ---
Nausea/Vomiting/Diarrhea HPI - General Chief complaint: Nausea/Vomiting/Diarrhea Stated complaint: revisit - lt arm fracture Time Seen by Provider: 08/09/21 11:49 Source: patient Mode of arrival: ambulatory Limitations: no limitations - History of Present Illness Initial comments: Patient is a 66-year-old male with a past medical history of alcohol use disorder who presents to the emergency department for intractable nausea and vomiting. Patient was discharged this morning from [facility] emergency department with a impacted humeral neck fracture after a fall on ice. Patient reports that in the waiting room after discharge he started to feel nauseous. Patient vomited 4 times in the waiting room. Nausea and vomiting continued throughout the day. Patient is unable to keep water down. Patient denies fever, chills, shortness of breath, chest pain, abdominal pain, urinary symptoms, constipation, diarrhea, or melenic stools/hematochezia. He has not filled his [place] prescription yet. Patient reports last alcohol use on 08/07/21 to treat his left shoulder pain. Patient states he drank a fifth of vodka and 4-5 Budweisers. - Related Data Previous Rx's Medication Instructions Recorded Folic Acid 1 mg PO DAILY #30 tablet 03/31/19 Mag Hydrox/Al Hydrox/Simeth 0 ml PO DAILY PRN #120 ml 03/31/19 [Maalox] Multivitamins, Thera [Multivitamin] 1 tab PO DAILY #30 tablet 03/31/19 Nicotine 21Mg/24Hr Patch [Habitrol] 1 patch TRANSDERM DAILY #20 patch 03/31/19 Pantoprazole Sodium [Protonix] 40 mg PO BID 30 Days #60 tablet. 03/31/19 Thiamine [Vitamin B-1] 100 mg PO BID-W/MEALS 30 Days #60 03/31/19 tab HYDROcodone/APAP 7.5-325MG [[place] 1 tab PO Q6HR PRN 5 Days #20 tab 08/09/21 7.5-325] Methocarbamol [Robaxin-750] 750 mg PO BID 7 Days #14 tablet 08/09/21 Allergies Allergy/AdvReac Type Severity Reaction Status Date / Time No Known Allergies Allergy Verified 08/09/21 10:40 Review of Systems ROS Statement: Those systems with pertinent positive or pertinent negative responses have been documented in the HPI. ROS Other: All systems not noted in ROS Statement are negative. Past Medical History Past Medical History: COPD Additional Past Medical History / Comment(s): liver failure History of Any Multi-Drug Resistant Organisms: None Reported Past Surgical History: No Surgical Hx Reported Past Psychological History: No Psychological Hx Reported Smoking Status: Current every day smoker Past Alcohol Use History: Heavy Past Drug Use History: Marijuana General Exam Limitations: no limitations General appearance: alert, in no apparent distress Eye exam: Present: normal appearance ENT exam: Present: mucous membranes moist Respiratory exam: Present: normal lung sounds bilaterally. Absent: respiratory distress, wheezes, rales, rhonchi, stridor Cardiovascular Exam: Present: regular rate, normal rhythm, normal heart sounds. Absent: systolic murmur, diastolic murmur, rubs, gallop, clicks GI/Abdominal exam: Present: soft. Absent: distended, tenderness, guarding, rebound, rigid Neurological exam: Present: alert, oriented X3, CN II-XII intact Psychiatric exam: Present: normal affect, normal mood Course Vital Signs 08/09/21 08/09/21 08/09/21 10:38 11:44 14:45 Temperature 98.4 F Pulse Rate 97 96 98 Respiratory 18 18 18 Rate Blood Pressure 175/87 163/79 172/76 O2 Sat by Pulse 96 93 L 94 L Oximetry - Reevaluation(s) Reevaluation #1: Reevaluation patient sleeping in bed. He reports that his nausea is tolerable and has not vomited since he arrived to the emergency department. his left shoulder pain is mild after morphine. 08/09/21 15:37 Medical Decision Making - Medical Decision Making This is a 66-year-old male with a past medical history alcohol use disorder who presents with intractable nausea and vomiting. CBC is unremarkable with normal hemoglobin. Bilirubin was elevated at 5.9. Upon reevaluation patient does have severe left shoulder pain. Morphine was given which relieved some pain. Patient does not have nausea and has not vomited while at the emergency department. Results discussed with Dr. Rodríguez who refuses patient for admission as he reports that general surgeons will not operate on patient with chronic alcohol use history and GI is not available today. I did speak with Dr. Castro at [facility] and patient will be transferred for further evaluation and treatment. - Lab Data Result diagrams: 08/09/21 13:03 08/09/21 13:03 Lab Results 08/09/21 08/09/21 08/09/21 Range/Units 12:31 13:03 13:03 WBC 9.2 (3.8-10.6) k/uL RBC 3.99 L (4.30-5.90) m/uL Hgb 13.5 (13.0-17.5) gm/dL Hct 39.3 (39.0-53.0) % MCV 98.5 (80.0-100.0) fL MCH 33.8 (25.0-35.0) pg MCHC 34.4 (31.0-37.0) g/dL RDW 13.7 (11.5-15.5) % Plt Count 114 L (150-450) k/uL MPV 8.4 Neutrophils % 85 % Lymphocytes % 8 % Monocytes % 6 % Eosinophils % 1 % Basophils % 0 % Neutrophils # 7.8 H (1.3-7.7) k/uL Lymphocytes # 0.7 L (1.0-4.8) k/uL Monocytes # 0.5 (0-1.0) k/uL Eosinophils # 0.1 (0-0.7) k/uL Basophils # 0.0 (0-0.2) k/uL PT 12.0 (9.0-12.0) sec INR 1.1 (<1.2) APTT 25.0 (22.0-30.0) sec Sodium 134 L (137-145) mmol/L Potassium 5.1 (3.5-5.1) mmol/L Chloride 100 (98-107) mmol/L Carbon Dioxide 20 L (22-30) mmol/L Anion Gap 14 mmol/L BUN 23 H (9-20) mg/dL Creatinine 0.99 (0.66-1.25) mg/dL Est GFR (CKD-EPI)AfAm >90 (>60 ml/min/1.73 sqM) Est GFR (CKD-EPI)NonAf 80 (>60 ml/min/1.73 sqM) Glucose 108 H (74-99) mg/dL Calcium 8.6 (8.4-10.2) mg/dL Total Bilirubin 5.9 H (0.2-1.3) mg/dL AST 77 H (17-59) U/L ALT 31 (4-49) U/L Alkaline Phosphatase 144 H (38-126) U/L Total Protein 7.9 (6.3-8.2) g/dL Albumin 4.2 (3.5-5.0) g/dL Lipase 61 (23-300) U/L Disposition Clinical Impression: Nausea and vomiting Disposition: OTHER INSTITUTION NOT DEFINED Condition: Good Referrals: Nonstaff,Physician [Primary Care Provider] - 1-2 days Time of Disposition: 16:20 - Out of Hospital Transfer - Req. Specs Out of Hospital Transfer - Requested Specifics: Other Emergency Center ([facility])
[2021-08-09] MEDS ORDERED: MORPHINE SULFATE 4 MG/ML SYRINGE IVP STA (13:13)
[2021-08-09 13:48] LABS: Basophils % (A) 0 %; Eosinophils # (A) 0.1 k/uL (0-0.7); Eosinophils % (A) 1 %; HCT 39.3 % (39.0-53.0); HGB 13.5 gm/dL (13.0-17.5); Lymphocytes # (A) 0.7 k/uL (1.0-4.8); Lymphocytes % (A) 8 %; MCH 33.8 pg (25.0-35.0); MCHC 34.4 g/dL (31.0-37.0); MCV 98.5 fL (80.0-100.0); Mean Platelet Volume 8.4; Monocytes # (A) 0.5 k/uL (0-1.0); Monocytes % (A) 6 %; Neutrophils # (A) 7.8 k/uL (1.3-7.7); Neutrophils % (A) 85 %; Platelet Count 114 k/uL (150-450); RBC 3.99 m/uL (4.30-5.90); RDW 13.7 % (11.5-15.5); WBC 9.2 k/uL (3.8-10.6)
[2021-08-09 14:03] LABS: ALT 31 U/L (4-49); AST 77 U/L (17-59); African American GFR (CKD) >90 (>60 ml/min/1.73 sqM); Albumin 4.2 g/dL (3.5-5.0); Alkaline Phosphatase 144 U/L (38-126); Anion Gap 14 mmol/L; Blood Urea Nitrogen 23 mg/dL (9-20); Calcium 8.6 mg/dL (8.4-10.2); Carbon Dioxide 20 mmol/L (22-30); Chloride 100 mmol/L (98-107); Glucose 108 mg/dL (74-99); Lipase 61 U/L (23-300); Non-African American GFR(CKD) 80 (>60 ml/min/1.73 sqM); Potassium 5.1 mmol/L (3.5-5.1); Sodium 134 mmol/L (137-145); Total Bilirubin 5.9 mg/dL (0.2-1.3); Total Protein 7.9 g/dL (6.3-8.2)
[2021-08-09 14:05] LABS: INR 1.1 (<1.2)
[2021-08-09 16:59] VITALS: BP 157/89; PULSE 87; TEMP 97.8
== END 2021-08-09 16:54 | disposition other institution (70) ==
LOC: EC 10:28
DX: R11.2 Nausea with vomiting, unspecified (principal); M25.512 Pain in left shoulder; F17.200 Nicotine dependence, unspecified, uncomplicated; J44.9 Chronic obstructive pulmonary disease, unspecified
CPT/HCPCS: 36415; 80053; 83690; 85025; 85610; 85730; 99284; 96374; 96375; 96361; J2270; J2405